=== PATIENT | female | born 2000 | race Two or more races ===

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

== ENCOUNTER 2019-10-13 12:41 | Inpatient (IN) | payer OTHER ==
[2019-10-13] MEDS ORDERED: SODIUM CHLORIDE 1,000 ML IV STA (13:44)
[2019-10-13] MEDS ORDERED: ONDANSETRON 4 MG/2 ML VIAL IVPUSH ONE (13:44)
[2019-10-13] MEDS ORDERED: ONDANSETRON 4 MG/2 ML VIAL ONE (13:46)
[2019-10-13 14:15] LABS: BASO % 0.2 % (0-2.0); EOS % 0.1 % (0-4.5); HEMATOCRIT 37.3 % (32.4-45.2); HEMOGLOBIN 12.6 GM/dL (10.7-15.3); LYMPH % 7.4 % (8-40); MCH 28.9 pg (25.7-33.7); MCHC 33.7 g/dl (32.0-36.0); MEAN CELL VOLUME 85.7 fl (80-96); MEAN PLT VOLUME 8.8 fl (7.5-11.1); MONO % 2.9 % (3.8-10.2); NEUT % 89.4 % (42.8-82.8); PLATELET COUNT 331 K/MM3 (134-434); RBC 4.36 M/mm3 (3.60-5.2); RDW 12.9 % (11.6-15.6); WHITE BLOOD COUNT 14.5 K/mm3 (4.0-10.0)
--- NOTE | 2019-10-13 14:24 | PDOC ---
History of Present Illness - General Chief Complaint: Nausea/Vomiting Stated Complaint: COLD SYMPSTOM Time Seen by Provider: 10/13/19 13:27 - History of Present Illness Initial Comments: Ms. Prakash is a 19 y/o female with PMH of marijuana use, presenting today with epigastric abdominal pain that started this morning. Reports associated nausea and vomiting x3 NBNB. No chest pain/shortness of breath. Reports associated diffuse abdominal pain. Reports mild frontal headache. Denies dysuria. Denies diarrhea. Reports having similar episodes of abdominal pain and nausea/vomiting before. No vaginal bleeding or discharge. LNMP 1 week ago. Past History - Past Medical History Allergies/Adverse Reactions: Allergies Allergy/AdvReac Type Severity Reaction Status Date / Time No Known Allergies Allergy Verified 12/09/16 19:48 Home Medications: Ambulatory Orders Amoxicillin/Potassium Clav [Augmentin 500-125 Tablet] 1 each PO BID #10 tablet 12/13/16 Clindamycin [Cleocin -] 300 mg PO TID #15 capsule 12/13/16 Anemia: No Asthma: No Cancer: No Cardiac Disorders: No CVA: No COPD: No CHF: No Dementia: No Diabetes: No GI Disorders: No Disorders: No HTN: No Hypercholesterolemia: No Liver Disease: No Seizures: No Thyroid Disease: No - Immunization History Immunization Up to Date: Yes - Psycho Social/Smoking Cessation Hx Smoking History: Unknown if ever smoked Have you smoked in the past 12 months: No Number of Cigarettes Smoked Daily: 0 Cigars Per Day: 0 Hx Alcohol Use: (pt refusing to unswer) Drug/Substance Use Hx: Yes (refusing to unswer) Substance Use Type: None Hx Substance Use Treatment: No Review of Systems - Review of Systems Comments:: GENERAL/CONSTITUTIONAL: No fever or chills. No weakness._ HEAD, EYES, EARS, NOSE AND THROAT: No change in vision. No change in hearing. No sore throat._ CARDIOVASCULAR: No chest pain or shortness of breath_ RESPIRATORY: Denies cough, hemoptysis_ GASTROINTESTINAL: Reports abdominal pain, nausea, vomiting. GENITOURINARY: No dysuria, frequency, or change in urination._ MUSCULOSKELETAL: No joint or muscle swelling or pain. No neck or back pain._ SKIN: No rash_ NEUROLOGIC: No headache, vertigo, loss of consciousness, or change in strength/ sensation._ ENDOCRINE: No increased thirst. No abnormal weight change_ HEMATOLOGIC/LYMPHATIC: No anemia, easy bleeding, or history of blood clots._ ALLERGIC/IMMUNOLOGIC: No hives or skin allergy._ *Physical Exam - Vital Signs Last Vital Signs Temp Pulse Resp BP Pulse Ox 98.4 F 74 20 111/75 100 10/13/19 12:55 10/13/19 13:35 10/13/19 13:35 10/13/19 13:35 10/13/19 13:35 - Physical Exam GENERAL: Awake, alert, and oriented to person/place/time, in no acute distress_ HEAD: No signs of trauma, normoc ephalic, atraumatic _ EYES: PERRLA, EOMI, sclera anicteric, conjunctiva clear_ ENT: Hearing grossly normal, nares patent, oropharynx clear without exudates. No uvular deviation. Moist mucosa_ NECK: Normal ROM, supple, no lymphadenopathy, JVD, or masses_ LUNGS: No distress, speaks in full sentences, clear to auscultation bilaterally _ HEART: Regular rate and rhythm, normal S1 and S2, no murmurs appreciated, peripheral pulses normal and equal bilaterally._ ABDOMEN: Soft, diffuse TTP worse in the epigastric area, normoactive bowel sounds. No guarding, no rebound. No masses_ EXTREMITIES: Normal inspection, Normal range of motion, no edema. No clubbing or cyanosis_ NEUROLOGICAL: Cranial nerves II through XII grossly intact. Normal speech, normal gait, no focal sensorimotor deficits _ SKIN: Warm, Dry, normal turgor, no rashes or lesions noted_ ED Treatment Course - LABORATORY CBC & Chemistry Diagram: 10/13/19 13:30 10/13/19 13:30 - Medications Given in the ED: ED Medications Discontinued Medications Generic Name Dose Route Start Last Admin Trade Name Freq PRN Reason Stop Dose Admin Ondansetron HCl 4 mg 10/13/19 13:44 10/13/19 13:50 Zofran Injection IVPUSH 10/13/19 13:45 4 mg ONCE ONE Administration Medical Decision Making - Medical Decision Making 10/13/19 14:41 19F presenting with epigastric abdominal pain, nausea, and vomiting x3. -cbc, cmp, lipase, coags -ekg, cxr -ua, ucx, upreg -US gallbladder 10/13/19 15:25 EKG shows NSR, 69 bpm, no ST elevation, QTc 465. 10/13/19 15:25 Labs reviewed. Laboratory Last Values WBC 14.5 K/mm3 (4.0-10.0) H 10/13/19 13:30 RBC 4.36 M/mm3 (3.60-5.2) 10/13/19 13:30 Hgb 12.6 GM/dL (10.7-15.3) 10/13/19 13:30 Hct 37.3 % (32.4-45.2) 10/13/19 13:30 MCV 85.7 fl (80-96) 10/13/19 13:30 MCH 28.9 pg (25.7-33.7) 10/13/19 13:30 MCHC 33.7 g/dl (32.0-36.0) 10/13/19 13:30 RDW 12.9 % (11.6-15.6) 10/13/19 13:30 Plt Count 331 K/MM3 (134-434) D 10/13/19 13:30 MPV 8.8 fl (7.5-11.1) 10/13/19 13:30 Absolute Neuts (auto) 13.0 K/mm3 (1.5-8.0) H 10/13/19 13:30 Neutrophils % 89.4 % (42.8-82.8) H D 10/13/19 13:30 Lymphocytes % 7.4 % (8-40) L D 10/13/19 13:30 Monocytes % 2.9 % (3.8-10.2) L 10/13/19 13:30 Eosinophils % 0.1 % (0-4.5) D 10/13/19 13:30 Basophils % 0.2 % (0-2.0) 10/13/19 13:30 Nucleated RBC % 0 % (0-0) 10/13/19 13:30 PT with INR 13.40 SEC (9.7-13.0) H 10/13/19 13:30 INR 1.13 (0.83-1.09) H 10/13/19 13:30 PTT (Actin FS) 24.5 SECONDS (25.2-36.5) L 10/13/19 13:30 Sodium 139 mmol/L (136-145) 10/13/19 13:30 Potassium 3.7 mmol/L (3.5-5.1) 10/13/19 13:30 Chloride 108 mmol/L (98-107) H 10/13/19 13:30 Carbon Dioxide 23 mmol/L (21-32) 10/13/19 13:30 Anion Gap 8 MMOL/L (8-16) 10/13/19 13:30 BUN 8.2 mg/dL (7-18) 10/13/19 13:30 Creatinine 0.8 mg/dL (0.55-1.3) 10/13/19 13:30 Est GFR (CKD-EPI)AfAm 122.14 10/13/19 13:30 Est GFR (CKD-EPI)NonAf 105.39 10/13/19 13:30 Random Glucose 139 mg/dL (74-106) H 10/13/19 13:30 Calcium 9.9 mg/dL (8.5-10.1) 10/13/19 13:30 Magnesium 2.0 mg/dL (1.8-2.4) 10/13/19 13:30 Total Bilirubin 0.6 mg/dL (0.2-1) 10/13/19 13:30 AST 18 U/L (15-37) 10/13/19 13:30 ALT 22 U/L (13-61) 10/13/19 13:30 Alkaline Phosphatase 72 U/L (45-117) 10/13/19 13:30 Total Protein 8.0 g/dl (6.4-8.2) 10/13/19 13:30 Albumin 4.1 g/dl (3.4-5.0) 10/13/19 13:30 Lipase 125 U/L (73-393) 10/13/19 13:30 Serum , Qual Negative 10/13/19 13:30 10/13/19 15:34 US shows no acute gallbladder pathology. 2mg haldol IV 10/13/19 16:33 Pt reassessed. Resting comfortably in bed and sleeping. Mother at bedside. Abdomen soft and non tender. 10/13/19 20:12 CT head shows no acute intra cranial pathology. CXR shows no acute intra thoracic pathology. CT abd pelv shows diffuse thickening of colon and signs of colitis. Will start cipro flagyl. UA reviewed. Urine Test Results Urine Color Yellow 10/13/19 17:00 Urine Appearance Clear 10/13/19 17:00 Urine pH >= 9.0 (5.0-8.0) H 10/13/19 17:00 Ur Specific [place] 1.022 (1.010-1.035) 10/13/19 17:00 Urine Protein Negative (NEGATIVE) 10/13/19 17:00 Urine Glucose (UA) Negative (NEGATIVE) 10/13/19 17:00 Urine Ketones 2+ (NEGATIVE) H 10/13/19 17:00 Urine Blood 2+ (NEGATIVE) H 10/13/19 17:00 Urine Nitrite Negative (NEGATIVE) 10/13/19 17:00 Urine Bilirubin Negative (NEGATIVE) 10/13/19 17:00 Ur Leukocyte Esterase Negative (NEGATIVE) 10/13/19 17:00 10/13/19 21:22 D/w Dr. Rodríguez who accepts the patient for admission. Discharge - Discharge Information Problems reviewed: Yes Clinical Impression/Diagnosis: Colitis, Intractable vomiting Condition: Stable - Admission Yes - Follow up/Referral - Patient Discharge Instructions - Post Discharge Activity
[2019-10-13 14:39] LABS: ALBUMIN 4.1 g/dl (3.4-5.0); BILIRUBIN,TOTAL 0.6 mg/dL (0.2-1); BLOOD UREA NITROGEN 8.2 mg/dL (7-18); CALCIUM 9.9 mg/dL (8.5-10.1); CREATININE 0.8 mg/dL (0.55-1.3); POTASSIUM 3.7 mmol/L (3.5-5.1)
[2019-10-13] MEDS ORDERED: ACETAMINOPHEN INJECTION 100 ML IVPB ONE ×2 (14:39→15:39)
[2019-10-13] MEDS: ACETAMINOPHEN 1000 MG/100 ML VIAL (NON FORMULARY) IVPB ONE (14:43)
[2019-10-13 15:18] LABS: INR 1.13 (0.83-1.09); PROTHROMBIN TIME (PATIENT) 13.4 SEC (9.7-13.0)
[2019-10-13 15:21] LABS: ACTIVATED PTT 24.5 SECONDS (25.2-36.5)
[2019-10-13] MEDS ORDERED: HALOPERIDOL DECANOATE 100 MG/ML IM ONE (15:35)
[2019-10-13] MEDS ORDERED: HALOPERIDOL LACTATE 5 MG/ML ONE (15:58)
[2019-10-13 17:35] LABS: EPI CELLS 5.5 /HPF (0-5/HPF); HYALINE CASTS 10 /lpf (0-8); PH,URINE >= 9.0 (5.0-8.0); URINE APPEARANCE CLEAR; URINE BACTERIA 11.2 /hpf (NEGATIVE); URINE BILIRUBIN NEGATIVE (NEGATIVE); URINE COLOR YELLOW; URINE GLUCOSE (UA) NEGATIVE (NEGATIVE); URINE KETONE 2+ (NEGATIVE); URINE LEUK ESTERASE NEGATIVE (NEGATIVE); URINE NITRITE NEGATIVE (NEGATIVE); URINE PROTEIN NEGATIVE (NEGATIVE); URINE RBC 16 /hpf (0-4); URINE UROBILINOGEN 0.2 mg/dL (0.2-1.0); URINE WBC 2 /hpf (0-5)
[2019-10-13] MEDS ORDERED: LORazepam 2 MG/ML SDV VIAL ONE (18:19)
[2019-10-13] MEDS: LACTATED RINGERS SOLUTION 1,000 ML/1,000 ML INFUS.BAG IV SCH ×2 (18:20→23:41)
--- NOTE | 2019-10-13 18:45 | PDOC ---
Documentation entered by Angel Umaña SCRIBE, acting as scribe for Melissa Taylor MD. Melissa Taylor MD: This documentation has been prepared by the Leeroy hoang Daniel, SCRIBE, under my direction and personally reviewed by me in its entirety. I confirm that the documentation accurately reflects all work, treatment, procedures, and medical decision making performed by me. Attending Attestation - Resident Resident Name: Gino Tan - ED Attending Attestation I have performed the following: I have examined & evaluated the patient, The case was reviewed & discussed with the resident, I agree w/resident's findings & plan, Exceptions are as noted - HPI HPI: 10/13/19 14:20 The patient is a 19 year old female with a past medical history of anxiety here today for evaluation of vomiting and abdominal pain. The patient reports that she has had diffuse abdominal pain that is most prominent in the epigastric and RUQ areas and NBNB vomiting since this morning. She states that she has had 3 episodes of vomiting. Pt is poorly cooperative with history due to nausea. Pt also reports gradual onset global headache since this morning as well. No treatments tried. Pt smokes marijuana multiple times per week, last 2 days ago, Patient denies dizziness, focal weakness/numbness. Denies fever, chills. Denies chest pain, shortness of breath. Denies diarrhea. Allergies: NKA - Physicial Exam PE: 10/13/19 14:20 GENERAL: Awake, alert, and fully oriented, in no acute distress but appears uncomfortable EYES: PERRLA, EOMI, sclera anicteric, conjunctiva clear ENT: Oropharynx clear without exudates. Moist mucosa NECK: Normal ROM, supple, no lymphadenopathy, JVD, or masses LUNGS: Breath sounds equal, clear to auscultation bilaterally. No wheezes, and no crackles HEART: Regular rate and rhythm, normal S1 and S2, no murmurs, rubs or gallops ABDOMEN: Soft, non distended, diffuse non focal ttp w/o guarding, no rebound. No masses EXTREMITIES: Normal range of motion, no edema. No cords, erythema, or tenderness NEUROLOGICAL: Normal speech, cranial nerves intact, equal strength and sensation b/l SKIN: Warm, Dry, normal turgor, no rashes or lesions noted. - Medical Decision Making 10/13/19 18:00 19yo F presents to the ED with diffuse abd pain, headache, N/V Vitals unremarkable (rpt BP 120/74) Exam with diffuse mild abd ttp, pt wretching DDx cannabinoid hypermesis vs cholecystitis vs pancreatitis vs gastritis vs gastroenteritis vs appendicitis Bedside US by Dr. Mccoy negative for GB pathology Labs with leukocytosis to 15, UA with ketones Poor response to zofran, thus obtained EKG for QTC and put pt on cardiac cath technician 2mg haldol IV given as well as 25mg benadryl with good response On rpt evaluation and PO challenge, however, pt vomiting water REmains diffusely tender, most focal in RUQ Plan for IV ativan for nausea Will also obtain CTH given headache and vomiting as well as CTAP to r/o acute intrabd pathology 10/13/19 19:00 Case signed out to night team for f/u on CTH/CTAP, reassessment, dispo Heart Score/ECG Review - ECG Intrepretation Comment:: 10/13/19 18:44 Twelve-lead EKG was performed and reviewed by me. Normal sinus rhythm, rate 69. Normal axis. No ST elevations, no prolonged QT
[2019-10-13] MEDS ORDERED: CIPROFLOXACIN 400 MG/D5W 400 MG/200 ML IVPB IVPB ONE (20:17)
[2019-10-13] MEDS ORDERED: ONDANSETRON 4 MG/2 ML VIAL IVPUSH PRN (22:19)
--- NOTE | 2019-10-13 22:47 | PN ---
Teaching Attending Note Name of Resident: Shad Rodríguez ATTENDING PHYSICIAN STATEMENT I saw and evaluated the patient. I reviewed the resident's note and discussed the case with the resident. I agree with the resident's findings and plan as documented. SUBJECTIVE: This is a 19 year old woman with a history of migraine headaches, Boerhaave syndrome, marijuana use, endometriosis who comes to the ED complaining of sudden onset of nausea, retching, vomiting and diarrhea while driving to school this morning. She has chronic intermittent epigastric pain for which she takes ibuprofen. She denies fevers but has had chills. She says she has been vomiting bilious fluid and diarrhea has been watery and non- bloody. She denies recent travel. She has not eaten anything or anyplace unusual except for some beef on 10/11 (she does not normally eat beef). OBJECTIVE: Vital Signs Period Temp Pulse Resp BP Sys/Nash Pulse Ox Last 24 Hr 98.2 F-98.4 F 62-88 20-20 82-125/60-112 98-100 HEART: S1S2, RRR LUNGS: Clear ABDOMEN: Soft, non-distended, (+) periumbilical tenderness, normal BS EXTREMITIES: No edema Laboratory Tests 10/13/19 10/13/19 10/13/19 13:30 13:30 13:30 WBC 14.5 H RBC 4.36 Hgb 12.6 Hct 37.3 MCV 85.7 MCH 28.9 MCHC 33.7 RDW 12.9 Plt Count 331 D MPV 8.8 Absolute Neuts (auto) 13.0 H Neutrophils % 89.4 H D Lymphocytes % 7.4 L D Monocytes % 2.9 L Eosinophils % 0.1 D Basophils % 0.2 Nucleated RBC % 0 PT with INR INR PTT (Actin FS) Sodium 139 Potassium 3.7 Chloride 108 H Carbon Dioxide 23 Anion Gap 8 BUN 8.2 Creatinine 0.8 Est GFR (CKD-EPI)AfAm 122.14 Est GFR (CKD-EPI)NonAf 105.39 Random Glucose 139 H Calcium 9.9 Magnesium 2.0 Total Bilirubin 0.6 AST 18 ALT 22 Alkaline Phosphatase 72 Total Protein 8.0 Albumin 4.1 Lipase 125 Serum , Qual Negative Urine Color Urine Appearance Urine pH Ur Specific [place] Urine Protein Urine Glucose (UA) Urine Ketones Urine Blood Urine Nitrite Urine Bilirubin Urine Urobilinogen Ur Leukocyte Esterase Urine WBC (Auto) Urine RBC (Auto) Urine Casts (Auto) U Epithel Cells (Auto) Urine Bacteria (Auto) Blood Type Antibody Screen 10/13/19 10/13/19 10/13/19 13:30 13:30 17:00 WBC RBC Hgb Hct MCV MCH MCHC RDW Plt Count MPV Absolute Neuts (auto) Neutrophils % Lymphocytes % Monocytes % Eosinophils % Basophils % Nucleated RBC % PT with INR 13.40 H INR 1.13 H PTT (Actin FS) 24.5 L Sodium Potassium Chloride Carbon Dioxide Anion Gap BUN Creatinine Est GFR (CKD-EPI)AfAm Est GFR (CKD-EPI)NonAf Random Glucose Calcium Magnesium Total Bilirubin AST ALT Alkaline Phosphatase Total Protein Albumin Lipase Serum , Qual Urine Color Yellow Urine Appearance Clear Urine pH >= 9.0 H Ur Specific [place] 1.022 Urine Protein Negative Urine Glucose (UA) Negative Urine Ketones 2+ H Urine Blood 2+ H Urine Nitrite Negative Urine Bilirubin Negative Urine Urobilinogen 0.2 Ur Leukocyte Esterase Negative Urine WBC (Auto) 2 Urine RBC (Auto) 16 Urine Casts (Auto) 10 U Epithel Cells (Auto) 5.5 Urine Bacteria (Auto) 11.2 Blood Type O POSITIVE Antibody Screen Negative Home Medications Medication Instructions Recorded Amoxicillin/Potassium Clav 1 each PO BID #10 tablet 12/13/16 [Augmentin 500-125 Tablet] Clindamycin [Cleocin -] 300 mg PO TID #15 capsule 12/13/16 ASSESSMENT AND PLAN: This is a 19 year old woman with a history of migraine headaches, Boerhaave syndrome, marijuana use, endometriosis who presented to the ED with nausea, vomiting and diarrhea. 1. Acute colitis with nausea, vomiting, diarrhea - Given Cipro, Flagyl in ED - Afebrile, leukocytosis may be reactive - Will hold antibiotics - Supportive care with IV fluid, pain control, antiemetics - Avoid marijuana - Check stool culture, WBC, O&P 2. Left ovarian cyst - Experienced Truck Driver follow-up as outpatient
[2019-10-13] MEDS: ACETAMINOPHEN 1000 MG/100 ML VIAL (NON FORMULARY) IVPB PRN (23:43)
[2019-10-14 00:12] VITALS: BMI 21.6
--- NOTE | 2019-10-14 01:01 | HP ---
CHIEF COMPLAINT: nausea, vomiting, epigastric pain PCP: none HISTORY OF PRESENT ILLNESS: Uziel Prakash is a 19 year old female with a past medical history of migraines , anxiety, pneumomediastinum from vomiting, and chronic marijuana use. She presents for a 1 day history of epigastric pain, 3-4 episodes of nausea and green vomiting. Denies blood in the vomit. Also notes that she had 1-2 episodes of diarrhea without blood. She endorses diffuse abdominal pain that is prominent in the epigastric region. She notes that she had beef yesterday that she normally does not eat. She denies other sick contacts, has a pet cat that is not sick and no other animal contacts, no recent travel. Endorses that she smokes marijuana regularly, every other day. Also endorsed a mild frontal headache. Stated that her last menstrual period was 1 week prior but feels that she had some bleeding today after she took some Motrin to assist with the abdominal pain. Otherwise denies acute complaints of cp, sob, dizziness, lightheadedness, difficulty swallowing, syncope, back pain, numbness, tingling, extremity pain, rashes, lesions on the skin. ER course was notable for: (1) WBC 14.5 with left shift, UA with pH>9.0, 2+ ketones, 2+ blood (2) bedside U/s with no acute pathology (3) CT/abd pelvis noting colitis with diffusely thickened colon, L ovarian cyst and free pelvic fluid (4) Head CT with no acute pathology Recent Travel: denies PAST MEDICAL HISTORY: as above PAST SURGICAL HISTORY: denies Social History: Smoking: denies Alcohol: denies Drugs: endorses regular every other day marijuana use Allergies No Known Allergies Allergy (Verified 12/09/16 19:48) HOME MEDICATIONS: Home Medications Medication Instructions Recorded Amoxicillin/Potassium Clav 1 each PO BID #10 tablet 12/13/16 [Augmentin 500-125 Tablet] Clindamycin [Cleocin -] 300 mg PO TID #15 capsule 12/13/16 REVIEW OF SYSTEMS CONSTITUTIONAL: generalized weakness, loss of appetite Absent: fever, chills, diaphoresis, malaise, weight change HEENT: Absent: rhinorrhea, nasal congestion, throat pain, throat swelling, difficulty swallowing, visual changes CARDIOVASCULAR: Absent: chest pain, syncope, palpitations, irregular heart rate, lightheadedness , peripheral edema RESPIRATORY: Absent: cough, shortness of breath, dyspnea with exertion, orthopnea, wheezing, GASTROINTESTINAL: nausea, vomiting, diarrhea Absent: abdominal pain, abdominal distension, constipation, melena, hematochezia GENITOURINARY: small amount of vaginal bleeding Absent: dysuria, frequency, urgency, hesitancy, hematuria, flank pain, genital pain MUSCULOSKELETAL: Absent: myalgia, arthralgia, joint swelling, back pain, neck pain SKIN: Absent: rash, itching, pallor HEMATOLOGIC/IMMUNOLOGIC: Absent: easy bleeding, easy bruising, lymphadenopathy, frequent infections ENDOCRINE: Absent: unexplained weight gain, unexplained weight loss, heat intolerance, cold intolerance NEUROLOGIC: Absent: headache, focal weakness or paresthesias, dizziness, unsteady gait, seizure, mental status changes, bladder or bowel incontinence PSYCHIATRIC: Absent: anxiety, depression, suicidal or homicidal ideation, hallucinations. PHYSICAL EXAMINATION Vital Signs - 24 hr 10/13/19 10/13/19 10/13/19 12:55 13:25 13:35 Temperature 98.4 F Pulse Rate 62 Pulse Rate [ 70 74 Left Radial] Respiratory 20 20 20 Rate Blood Pressure 125/112 H Blood Pressure 82/60 L 111/75 [Left Arm] O2 Sat by Pulse 99 100 100 Oximetry (%) 10/13/19 10/13/19 10/13/19 13:45 16:30 17:22 Temperature 98.2 F Pulse Rate 74 84 76 Pulse Rate [ 84 Left Radial] Respiratory 20 20 20 Rate Blood Pressure 111/75 110/70 121/82 Blood Pressure 110/70 [Left Arm] O2 Sat by Pulse 98 Oximetry (%) 10/13/19 10/13/19 10/13/19 18:30 23:00 23:48 Temperature 98.0 F Pulse Rate 88 91 H Pulse Rate [ 71 Left Radial] Respiratory 20 18 18 Rate Blood Pressure 116/80 104/50 L Blood Pressure 109/56 L [Left Arm] O2 Sat by Pulse 99 99 Oximetry (%) GENERAL: Awake, alert, and fully oriented, in moderate acute distress. HEAD: Normal with no signs of trauma. EYES: Pupils equal, round and reactive to light, extraocular movements intact, sclera anicteric, conjunctiva clear. EARS, NOSE, THROAT: Oropharynx clear without exudates. Dry mucous membranes. NECK: Normal range of motion, supple without lymphadenopathy, JVD. LUNGS: Breath sounds equal, clear to auscultation bilaterally. No wheezes, and no crackles. No accessory muscle use. HEART: Regular rate and rhythm, normal S1 and S2 without murmur, rub. ABDOMEN: Soft, tender to palpation throughout most prominently in the epigastric region, not distended, normoactive bowel sounds, no guarding, no rebound, no masses. No Lind's sign MUSCULOSKELETAL: Normal range of motion at all joints. No bony deformities or tenderness. Minor CVA tenderness bilaterally. UPPER EXTREMITIES: 2+ pulses, warm, well-perfused. No cyanosis. No clubbing. No peripheral edema. LOWER EXTREMITIES: 2+ pulses, warm, well-perfused. No calf tenderness. No peripheral edema. NEUROLOGICAL: Cranial nerves II-XII intact. 5/5 muscle strength upper and lower extremities bilaterally. PSYCHIATRIC: Cooperative. Good eye contact. Appropriate mood and affect. SKIN: Warm, dry, normal turgor, no rashes or lesions noted, normal capillary refill. Laboratory Results - last 24 hr 10/13/19 10/13/19 10/13/19 13:30 13:30 13:30 WBC 14.5 H RBC 4.36 Hgb 12.6 Hct 37.3 MCV 85.7 MCH 28.9 MCHC 33.7 RDW 12.9 Plt Count 331 D MPV 8.8 Absolute Neuts (auto) 13.0 H Neutrophils % 89.4 H D Lymphocytes % 7.4 L D Monocytes % 2.9 L Eosinophils % 0.1 D Basophils % 0.2 Nucleated RBC % 0 PT with INR INR PTT (Actin FS) Sodium 139 Potassium 3.7 Chloride 108 H Carbon Dioxide 23 Anion Gap 8 BUN 8.2 Creatinine 0.8 Est GFR (CKD-EPI)AfAm 122.14 Est GFR (CKD-EPI)NonAf 105.39 Random Glucose 139 H Calcium 9.9 Magnesium 2.0 Total Bilirubin 0.6 AST 18 ALT 22 Alkaline Phosphatase 72 Total Protein 8.0 Albumin 4.1 Lipase 125 Serum , Qual Negative Urine Color Urine Appearance Urine pH Ur Specific [place] Urine Protein Urine Glucose (UA) Urine Ketones Urine Blood Urine Nitrite Urine Bilirubin Urine Urobilinogen Ur Leukocyte Esterase Urine WBC (Auto) Urine RBC (Auto) Urine Casts (Auto) U Epithel Cells (Auto) Urine Bacteria (Auto) Blood Type Antibody Screen 02/12/2710/13/19 10/13/19 13:30 13:30 17:00 WBC RBC Hgb Hct MCV MCH MCHC RDW Plt Count MPV Absolute Neuts (auto) Neutrophils % Lymphocytes % Monocytes % Eosinophils % Basophils % Nucleated RBC % PT with INR 13.40 H INR 1.13 H PTT (Actin FS) 24.5 L Sodium Potassium Chloride Carbon Dioxide Anion Gap BUN Creatinine Est GFR (CKD-EPI)AfAm Est GFR (CKD-EPI)NonAf Random Glucose Calcium Magnesium Total Bilirubin AST ALT Alkaline Phosphatase Total Protein Albumin Lipase Serum , Qual Urine Color Yellow Urine Appearance Clear Urine pH >= 9.0 H Ur Specific [place] 1.022 Urine Protein Negative Urine Glucose (UA) Negative Urine Ketones 2+ H Urine Blood 2+ H Urine Nitrite Negative Urine Bilirubin Negative Urine Urobilinogen 0.2 Ur Leukocyte Esterase Negative Urine WBC (Auto) 2 Urine RBC (Auto) 16 Urine Casts (Auto) 10 U Epithel Cells (Auto) 5.5 Urine Bacteria (Auto) 11.2 Blood Type O POSITIVE Antibody Screen Negative ASSESSMENT/PLAN: Uziel Prakash is a 19 year old female with a past medical history of migraines , anxiety, pneumomediastinum from vomiting, and chronic marijuana use admitted for colitis and inability to tolerate PO intake. Colitis - CT scan as above - unclear reason for development of colitis, no family history of GI issues, has history of marijuana use, questionable cannabinoid hyperemesis syndrome - given Cipro/Flagyl in ED, no further antibiotics as patient without fevers - continue fluid hydration with LR - stool studies ordered - GI for possible colonoscopy, has been seen by Dr. 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 f/u Blood in UA - likely contaminant from vaginal bleeding DVT PPx - Lovenox 40mg subq daily FEN - LR at 100cc/hr - continue to monitor electrolytes and replete as necessary - NPO and advance diet as per GI Dispo - admit to Med-surg Family Medical History Family Hx Diabetes: Grandmother (maternal) Other Family History: denies family history of UC, Chrohns, other colon or GI pathology Visit type - Emergency Visit Emergency Visit: Yes ED Registration Date: 10/13/19 Care time: The patient presented to the Emergency Department on the above date and was hospitalized for further evaluation of their emergent condition. - New Patient This patient is new to me today: Yes Date on this admission: 10/14/19 - Critical Care Critical Care patient: No
[2019-10-14 07:57] LABS: BASO % 0.2 % (0-2.0); EOS % 0.3 % (0-4.5); HEMATOCRIT 31.5 % (32.4-45.2); HEMOGLOBIN 10.9 GM/dL (10.7-15.3); LYMPH % 23.5 % (8-40); MCH 29.6 pg (25.7-33.7); MCHC 34.6 g/dl (32.0-36.0); MEAN CELL VOLUME 85.6 fl (80-96); MEAN PLT VOLUME 8.6 fl (7.5-11.1); MONO % 6.3 % (3.8-10.2); NEUT % 69.7 % (42.8-82.8); PLATELET COUNT 238 K/MM3 (134-434); RBC 3.68 M/mm3 (3.60-5.2); RDW 12.7 % (11.6-15.6); WHITE BLOOD COUNT 8.9 K/mm3 (4.0-10.0)
[2019-10-14 08:03] LABS: BLOOD UREA NITROGEN 5.6 mg/dL (7-18); CALCIUM 8.6 mg/dL (8.5-10.1); CREATININE 0.6 mg/dL (0.55-1.3); MAGNESIUM 1.9 mg/dL (1.8-2.4); POTASSIUM 3.6 mmol/L (3.5-5.1)
--- NOTE | 2019-10-14 08:29 | CON.GI ---
Consult Consult Specialty:: GI Referred by:: Dr. Jose Rodríguez Reason for Consultation:: Colitis, Nausea/Vomiting - History of Present Illness History of Present Illness: Patient is a 19 y/o female with past medical history of Migraines, Anxiety, Pneumomediastinum from vomiting, and chronic marijuana use. She states that yesterday morning at 8am she developed sharp, non-radiating lower abdominal pain then began vomiting blood streaked contents and one episode of non-bloody diarrhea. She states that vomiting lasted throughout day, was green in color, and later developed epigastric pain. She denies further episodes of diarrhea and states lower abdominal pain is slightly improved. She states having dysphagia, poor appetite. Denies rectal bleeding or melena. CTAP shows diffusely thickened colon suspicious for colitis, left ovarian cyst. No fevers reported, initially at leukocytosis with WBC 14.5 but shows downtrend and currently 8.9. 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 ...LMP: 10/08/19 ...: No Psych: Yes: Anxiety - Alcohol/Substance Use Hx Alcohol Use: No - Smoking History Smoking history: Current every day smoker Have you smoked in the past 12 months: Yes Aproximately how many cigarettes per day: 0 - Social History ADL: Independent History of Recent Travel: No Home Medications - Allergies Allergies/Adverse Reactions: Allergies Allergy/AdvReac Type Severity Reaction Status Date / Time No Known Allergies Allergy Verified 12/09/16 19:48 - Home Medications Home Medications: Ambulatory Orders Amoxicillin/Potassium Clav [Augmentin 500-125 Tablet] 1 each PO BID #10 tablet 12/13/16 Clindamycin [Cleocin -] 300 mg PO TID #15 capsule 12/13/16 Review of Systems - Review of Systems Constitutional: reports: Loss of Appetite, Weakness Eyes: reports: No Symptoms HENT: reports: Difficult Swallowing Neck: reports: No Symptoms Cardiovascular: reports: No Symptoms Respiratory: reports: No Symptoms Gastrointestinal: reports: Abdominal Pain, Dysphagia, Nausea, Vomiting Genitourinary: reports: No Symptoms Breasts: reports: No Symptoms Reported Musculoskeletal: reports: No Symptoms Integumentary: reports: No Symptoms Neurological: reports: No Symptoms Endocrine: reports: No Symptoms Hematology/Lymphatic: reports: No Symptoms Psychiatric: reports: No Symptoms Physical Exam-GI Vital Signs: Vital Signs Temperature 98.5 F 10/14/19 06:00 Pulse Rate 75 10/14/19 06:00 Respiratory Rate 18 10/14/19 06:00 Blood Pressure 114/45 L 10/14/19 06:00 O2 Sat by Pulse Oximetry (%) 99 10/13/19 23:48 Constitutional: Yes: No Distress, Calm, Thin Eyes: Yes: Conjunctiva Clear HENT: Yes: Atraumatic Cardiovascular: Yes: Regular Rate and Rhythm Respiratory: Yes: Regular, CTA Bilaterally Gastrointestinal Inspection: Yes: WNL. No: Ascites, Distention, Hernia, Scars, Other ...Auscultate: Yes: Normoactive Bowel Sounds. No: Hyperactive Bowel Sounds, Hypoactive Bowel Sounds, No Bowel Sounds, Other ...Palpate: Yes: Soft, Tenderness (llq). No: Firm/Rigid, Guarding, Hepatomegaly , Mass, Pulsatile Mass, Splenomegaly, Tenderness, Epigastium, Tenderness, Rebound, Other ...Percussion: Yes: Tympanitic. No: Dullness, Fluid Wave, Other Labs: CBC, BMP 10/14/19 06:55 10/14/19 06:55 INR, PTT INR 1.13 (0.83-1.09) H 10/13/19 13:30 Imaging - Results Cat Scan: Report Reviewed Problem List - Problems (1) Colitis Assessment/Plan: >R/O infectious vs ischemic colitis Ceftriaxone and Flagyl Zofran for nausea/vomiting Stool Culture, Ova and Parastie clear liquid diet Code(s): K52.9 - NONINFECTIVE GASTROENTERITIS AND COLITIS, UNSPECIFIED (2) Intractable vomiting Assessment/Plan: r/o secodnary to PUD, gastritis R> IV Pantoprazole IV Reglan Code(s): R11.10 - VOMITING, UNSPECIFIED
[2019-10-14] MEDS ORDERED: ONDANSETRON 4 MG/2 ML VIAL IVPB STA (09:11)
[2019-10-14] MEDS: ACETAMINOPHEN 1000 MG/100 ML VIAL (NON FORMULARY) IVPB PRN ×2 (09:29→20:09)
[2019-10-14] MEDS ORDERED: DEXTROSE 5%-WATER - 50 ML IVPB ONE (09:46)
[2019-10-14] MEDS ORDERED: cefTRIAXone SODIUM 1 GM VIAL ONE (09:46)
[2019-10-14] MEDS ORDERED: FLU VACCINE QUAD 60 MCG/0.5 ML (MDV 19-20) IM ONE (10:00)
[2019-10-14] MEDS: CEFTRIAXONE 1 GM in DEXTROSE 5%-WATER - 50 ML IVPB SCH (10:29)
[2019-10-14] MEDS: ENOXAPARIN NA (PORCINE) 40 MG/0.4 ML DISP.SYRIN SQ SCH (10:29)
--- NOTE | 2019-10-14 11:33 | PN ---
Physical Exam: SUBJECTIVE: Patient seen and examined at the bedside. denies any nausea or vomiting. OBJECTIVE: Patient is a 19 year old female with a past medical history of migraines, anxiety, pneumomediastinum from vomiting, and chronic marijuana use. She presents for a 1 day history of epigastric pain, 3-4 episodes of nausea and green vomiting and 1-2 episodes of diarrhea without blood. An abdomen/pelvis CT shows diffusely thickened colon suspicious for colitis. A left ovarian cyst also noted. Vital Signs Period Temp Pulse Resp BP Sys/Nash Pulse Ox Last 24 Hr 98.0 F-98.9 F 62-91 17-20 82-125/45-112 98-100 GENERAL: The patient is awake, alert, and fully oriented, in no acute distress. HEAD: Normal with no signs of trauma. EYES: PERRL, extraocular movements intact, sclera anicteric, conjunctiva clear. No ptosis. ENT: Ears normal, nares patent NECK: Trachea midline, full range of motion, supple. LUNGS: Breath sounds equal, clear to auscultation bilaterally HEART: Regular rate and rhythm ABDOMEN: Soft, nontender, nondistended, normoactive bowel sounds EXTREMITIES: 2+ pulses, warm, well-perfused, no edema. NEUROLOGICAL: awake and alert PSYCH: Normal mood, normal affect. SKIN: Warm, dry, normal turgor, no rashes or lesions noted Laboratory Results - last 24 hr 10/13/19 10/13/19 10/13/19 13:30 13:30 13:30 WBC 14.5 H RBC 4.36 Hgb 12.6 Hct 37.3 MCV 85.7 MCH 28.9 MCHC 33.7 RDW 12.9 Plt Count 331 D MPV 8.8 Absolute Neuts (auto) 13.0 H Neutrophils % 89.4 H D Lymphocytes % 7.4 L D Monocytes % 2.9 L Eosinophils % 0.1 D Basophils % 0.2 Nucleated RBC % 0 PT with INR INR PTT (Actin FS) Sodium 139 Potassium 3.7 Chloride 108 H Carbon Dioxide 23 Anion Gap 8 BUN 8.2 Creatinine 0.8 Est GFR (CKD-EPI)AfAm 122.14 Est GFR (CKD-EPI)NonAf 105.39 Random Glucose 139 H Calcium 9.9 Magnesium 2.0 Total Bilirubin 0.6 AST 18 ALT 22 Alkaline Phosphatase 72 Total Protein 8.0 Albumin 4.1 Lipase 125 TSH Serum , Qual Negative Urine Color Urine Appearance Urine pH Ur Specific [place] Urine Protein Urine Glucose (UA) Urine Ketones Urine Blood Urine Nitrite Urine Bilirubin Urine Urobilinogen Ur Leukocyte Esterase Urine WBC (Auto) Urine RBC (Auto) Urine Casts (Auto) U Epithel Cells (Auto) Urine Bacteria (Auto) Blood Type Antibody Screen 10/13/19 10/13/19 10/13/19 13:30 13:30 17:00 WBC RBC Hgb Hct MCV MCH MCHC RDW Plt Count MPV Absolute Neuts (auto) Neutrophils % Lymphocytes % Monocytes % Eosinophils % Basophils % Nucleated RBC % PT with INR 13.40 H INR 1.13 H PTT (Actin FS) 24.5 L Sodium Potassium Chloride Carbon Dioxide Anion Gap BUN Creatinine Est GFR (CKD-EPI)AfAm Est GFR (CKD-EPI)NonAf Random Glucose Calcium Magnesium Total Bilirubin AST ALT Alkaline Phosphatase Total Protein Albumin Lipase TSH Serum , Qual Urine Color Yellow Urine Appearance Clear Urine pH >= 9.0 H Ur Specific [place] 1.022 Urine Protein Negative Urine Glucose (UA) Negative Urine Ketones 2+ H Urine Blood 2+ H Urine Nitrite Negative Urine Bilirubin Negative Urine Urobilinogen 0.2 Ur Leukocyte Esterase Negative Urine WBC (Auto) 2 Urine RBC (Auto) 16 Urine Casts (Auto) 10 U Epithel Cells (Auto) 5.5 Urine Bacteria (Auto) 11.2 Blood Type O POSITIVE Antibody Screen Negative 10/14/19 10/14/19 06:55 06:55 WBC 8.9 RBC 3.68 Hgb 10.9 Hct 31.5 L D MCV 85.6 MCH 29.6 MCHC 34.6 RDW 12.7 Plt Count 238 D MPV 8.6 Absolute Neuts (auto) 6.2 Neutrophils % 69.7 D Lymphocytes % 23.5 D Monocytes % 6.3 D Eosinophils % 0.3 D Basophils % 0.2 Nucleated RBC % 0 PT with INR INR PTT (Actin FS) Sodium 141 Potassium 3.6 Chloride 109 H Carbon Dioxide 25 Anion Gap 7 L BUN 5.6 L Creatinine 0.6 Est GFR (CKD-EPI)AfAm 151.01 Est GFR (CKD-EPI)NonAf 130.29 Random Glucose 86 Calcium 8.6 Magnesium 1.9 Total Bilirubin AST ALT Alkaline Phosphatase Total Protein Albumin Lipase TSH 0.34 L Serum , Qual Urine Color Urine Appearance Urine pH Ur Specific [place] Urine Protein Urine Glucose (UA) Urine Ketones Urine Blood Urine Nitrite Urine Bilirubin Urine Urobilinogen Ur Leukocyte Esterase Urine WBC (Auto) Urine RBC (Auto) Urine Casts (Auto) U Epithel Cells (Auto) Urine Bacteria (Auto) Blood Type Antibody Screen Active Medications Generic Name Dose Route Start Last Admin Trade Name Freq PRN Reason Stop Dose Admin Acetaminophen 1,000 mg 10/13/19 14:34 10/13/19 14:43 Ofirmev Injection - IVPB 1,000 mg ONCE ONE Administration Acetaminophen 1,000 mg 10/13/19 22:21 10/14/19 09:29 Ofirmev Injection - IVPB 10/14/19 22:21 1,000 mg Q6H PRN Administration PAIN LEVEL 6-10 Enoxaparin Sodium 40 mg 10/14/19 10:00 10/14/19 10:29 Lovenox - SQ Not Given DAILY GRABIEL Lactated Ringer's 1,000 ml in 1,000 mls @ 100 mls/hr 10/13/19 18:15 10/13/19 23:41 Lactated Ringers Solution IV 100 mls/hr ASDIR GRABIEL Administration Ceftriaxone Sodium 1 gm/ 50 mls @ 200 mls/hr 10/14/19 10:00 10/14/19 10:29 Dextrose IVPB 200 mls/hr DAILY GRABIEL Administration Protocol Metronidazole 250 mg in 50 mls @ 50 mls/hr 10/14/19 10:00 Flagyl 250mg Premixed Ivpb - IVPB Q8H-IV GRABIEL Ondansetron HCl 4 mg 10/13/19 22:19 Zofran Injection IVPUSH Q6H PRN NAUSEA ASSESSMENT/PLAN: Problem List - Problems (1) Colitis Assessment/Plan: ct scan as noted above. on flagyl and ceftriaxone per GI stool studies ordered/pending manage pain and nausea with tylenol/zofran, but currently asymptomatic Code(s): K52.9 - NONINFECTIVE GASTROENTERITIS AND COLITIS, UNSPECIFIED (2) Abdominal pain Assessment/Plan: now resolved and tolerating clears advance diet per GI Code(s): R10.9 - UNSPECIFIED ABDOMINAL PAIN (3) Prophylactic measure Assessment/Plan: fen lovenox continue ivf monitor electrolytes full code Code(s): Z29.9 - ENCOUNTER FOR PROPHYLACTIC MEASURES, UNSPECIFIED Visit type - Emergency Visit Emergency Visit: Yes ED Registration Date: 10/13/19 Care time: The patient presented to the Emergency Department on the above date and was hospitalized for further evaluation of their emergent condition. - New Patient This patient is new to me today: Yes Date on this admission: 10/14/19 - Critical Care Critical Care patient: No - Discharge Referral Referred to [facility] Med P.C.: No
--- NOTE | 2019-10-14 11:39 | EKG ---
Test Reason : Blood Pressure : / mmHG Vent. Rate : 069 BPM Atrial Rate : 069 BPM P-R Int : 156 ms QRS Dur : 082 ms QT Int : 434 ms P-R-T Axes : 059 085 060 degrees QTc Int : 465 ms NORMAL SINUS RHYTHM WITH SINUS ARRHYTHMIA NORMAL ECG WHEN COMPARED WITH ECG OF 11-DEC-2016 07:13, NO SIGNIFICANT CHANGE WAS FOUND Confirmed by Gino Morales MD ([id number]) on 10/14/2019 11:38:56 AM Referred By: Confirmed By:Gino Morales MD
[2019-10-14] MEDS: METOCLOPRAMIDE HCL INJECTION 10 MG/2 ML VIAL IVPB SCH (20:05)
[2019-10-14] MEDS: ONDANSETRON 4 MG/2 ML VIAL IVPB SCH ×2 (20:05→22:03)
[2019-10-14] MEDS ORDERED: PT OWN MED DRAWER 7, Y5N ONE (20:08)
[2019-10-14] MEDS: LACTATED RINGERS SOLUTION 1,000 ML/1,000 ML INFUS.BAG IV SCH (20:11)
[2019-10-14] MEDS ORDERED: PANTOPRAZOLE SODIUM 40 MG in SODIUM CHLORIDE 100 ML IVPB SCH (22:00)
[2019-10-14] MEDS: PANTOPRAZOLE SODIUM 40 MG VIAL IVPUSH SCH (22:03)
[2019-10-15] MEDS ORDERED: PT OWN MED DRAWER 7, Y5N ONE (01:35)
[2019-10-15] MEDS: METOCLOPRAMIDE HCL INJECTION 10 MG/2 ML VIAL IVPB SCH ×3 (01:53→17:01)
[2019-10-15] MEDS: ONDANSETRON 4 MG/2 ML VIAL IVPB SCH ×2 (01:53→06:15)
[2019-10-15] MEDS ORDERED: ONDANSETRON 4 MG/2 ML VIAL IVPB PRN (06:00)
[2019-10-15] MEDS: LACTATED RINGERS SOLUTION 1,000 ML/1,000 ML INFUS.BAG IV SCH (06:24)
[2019-10-15] MEDS: ACETAMINOPHEN 1000 MG/100 ML VIAL (NON FORMULARY) IVPB ONE (06:59)
[2019-10-15 07:31] LABS: BASO % 0.4 % (0-2.0); EOS % 0.7 % (0-4.5); HEMATOCRIT 34.7 % (32.4-45.2); HEMOGLOBIN 11.7 GM/dL (10.7-15.3); MCH 29.2 pg (25.7-33.7); MCHC 33.7 g/dl (32.0-36.0); MEAN CELL VOLUME 86.6 fl (80-96); MEAN PLT VOLUME 8.6 fl (7.5-11.1); MONO % 5.4 % (3.8-10.2); NEUT % 69.5 % (42.8-82.8); PLATELET COUNT 229 K/MM3 (134-434); RBC 4.01 M/mm3 (3.60-5.2); RDW 12.4 % (11.6-15.6); WHITE BLOOD COUNT 5.4 K/mm3 (4.0-10.0)
[2019-10-15 08:21] LABS: ALBUMIN 3.6 g/dl (3.4-5.0); BILIRUBIN,TOTAL 0.8 mg/dL (0.2-1); BLOOD UREA NITROGEN 6.2 mg/dL (7-18); CALCIUM 8.4 mg/dL (8.5-10.1); CREATININE 0.8 mg/dL (0.55-1.3); MAGNESIUM 1.9 mg/dL (1.8-2.4); POTASSIUM 3.1 mmol/L (3.5-5.1); TOT PROT 6.5 g/dl (6.4-8.2)
[2019-10-15] MEDS: KETOROLAC TROMETHAMINE 30 MG/1 ML VIAL IVPUSH PRN ×2 (08:24→13:28)
[2019-10-15] MEDS ORDERED: DEXTROSE 5%-WATER - 50 ML IVPB ONE (09:28)
[2019-10-15] MEDS ORDERED: cefTRIAXone SODIUM 1 GM VIAL ONE (09:28)
[2019-10-15] MEDS: PANTOPRAZOLE SODIUM 40 MG VIAL IVPUSH SCH (10:00)
[2019-10-15] MEDS: POTASSIUM CHLORIDE TABS 20 MEQ TABLET.ER (FP) PO ONE ×2 (10:00→10:16)
[2019-10-15] MEDS: ENOXAPARIN NA (PORCINE) 40 MG/0.4 ML DISP.SYRIN SQ SCH (10:00)
[2019-10-15] MEDS: CEFTRIAXONE 1 GM in DEXTROSE 5%-WATER - 50 ML IVPB SCH (10:00)
[2019-10-15] MEDS ORDERED: LORazepam 0.5 MG TABLET PO PRN (11:00)
--- NOTE | 2019-10-15 11:06 | PN ---
Physical Exam: SUBJECTIVE: Patient seen and examined at the bedside. she is having some abdominal pain this morning after clears. No nausea or vomiting. very anxious and asking to go home. She gave me permission to call her mother Frankie [phone] and update her on plan of care, status. OBJECTIVE: Patient is a 19 year old female with a past medical history of migraines, anxiety, pneumomediastinum from vomiting, and chronic marijuana use. She presents for a 1 day history of epigastric pain, 3-4 episodes of nausea and green vomiting and 1-2 episodes of diarrhea without blood. An abdomen/pelvis CT shows diffusely thickened colon suspicious for colitis. A left ovarian cyst also noted. Vital Signs Period Temp Pulse Resp BP Sys/Nash Pulse Ox Last 24 Hr 97.5 F-98.9 F 62-83 17-18 109-126/68-78 99 GENERAL: The patient is awake, alert, and fully oriented, in no acute distress. HEAD: Normal with no signs of trauma. EYES: PERRL, extraocular movements intact, sclera anicteric, conjunctiva clear. No ptosis. ENT: Ears normal, nares patent NECK: Trachea midline, full range of motion, supple. LUNGS: Breath sounds equal, clear to auscultation bilaterally HEART: Regular rate and rhythm ABDOMEN: Soft, nontender, nondistended, normoactive bowel sounds EXTREMITIES: 2+ pulses, warm, well-perfused, no edema. NEUROLOGICAL: awake and alert PSYCH: Normal mood, normal affect. SKIN: Warm, dry, normal turgor, no rashes or lesions noted Laboratory Results - last 24 hr 10/15/19 10/15/19 06:40 06:40 WBC 5.4 RBC 4.01 Hgb 11.7 Hct 34.7 MCV 86.6 MCH 29.2 MCHC 33.7 RDW 12.4 Plt Count 229 MPV 8.6 Absolute Neuts (auto) 3.8 Neutrophils % 69.5 Lymphocytes % 24.0 Monocytes % 5.4 Eosinophils % 0.7 D Basophils % 0.4 Nucleated RBC % 0 Sodium 139 Potassium 3.1 L Chloride 107 Carbon Dioxide 23 Anion Gap 10 BUN 6.2 L Creatinine 0.8 Est GFR (CKD-EPI)AfAm 122.14 Est GFR (CKD-EPI)NonAf 105.39 Random Glucose 80 Calcium 8.4 L Magnesium 1.9 Total Bilirubin 0.8 AST 13 L ALT 17 Alkaline Phosphatase 60 Total Protein 6.5 Albumin 3.6 Active Medications Generic Name Dose Route Start Last Admin Trade Name Suhail PRN Reason Stop Dose Admin Acetaminophen 1,000 mg 10/13/19 14:34 10/15/19 06:59 Ofirmev Injection - IVPB 1,000 mg ONCE ONE Administration Enoxaparin Sodium 40 mg 10/14/19 10:00 10/15/19 10:00 Lovenox - SQ Not Given DAILY GRABIEL Lactated Ringer's 1,000 ml in 1,000 mls @ 100 mls/hr 10/13/19 18:15 10/15/19 06:24 Lactated Ringers Solution IV 100 mls/hr ASDIR GRABIEL Administration Ceftriaxone Sodium 1 gm/ 50 mls @ 200 mls/hr 10/14/19 10:00 10/15/19 10:00 Dextrose IVPB 200 mls/hr DAILY GRABIEL Administration Protocol Metronidazole 250 mg in 50 mls @ 50 mls/hr 10/14/19 10:00 10/15/19 10:30 Flagyl 250mg Premixed Ivpb - IVPB 50 mls/hr Q8H-IV GRABIEL Administration Potassium Chloride 10 meq in 100 mls @ 100 mls/hr 10/15/19 10:45 Potassium Chloride 10 Meq Premix Ivpb - IVPB 10/15/19 12:44 Q60M GRABIEL Ketorolac Tromethamine 30 mg 10/15/19 07:55 10/15/19 08:24 Toradol Injection - IVPUSH 10/20/19 07:54 30 mg Q6H PRN Administration PAIN LEVEL 7 - 10 Lorazepam 0.5 mg 10/15/19 11:00 Ativan - PO BID PRN ANXIETY Metoclopramide HCl 5 mg 10/14/19 18:45 10/15/19 01:53 Reglan Injection - IVPB 5 mg Q8H-IV GRABIEL Administration Ondansetron HCl 4 mg 10/15/19 06:00 Zofran Injection IVPB Q4H PRN NAUSEA AND/OR VOMITING Pantoprazole Sodium 40 mg 10/14/19 22:00 10/15/19 10:00 Protonix Iv IVPUSH 40 mg BID GRABIEL Administration ASSESSMENT/PLAN: Problem List - Problems (1) Colitis Assessment/Plan: ct scan as noted above. on flagyl and ceftriaxone per GI stool studies ordered/pending Code(s): K52.9 - NONINFECTIVE GASTROENTERITIS AND COLITIS, UNSPECIFIED (2) Abdominal pain Assessment/Plan: mild pain this a.m. without nausea or vomiting. advance diet per GI Code(s): R10.9 - UNSPECIFIED ABDOMINAL PAIN (3) Anxiety Assessment/Plan: trial of ativan 0.5mg PO BID Code(s): F41.9 - ANXIETY DISORDER, UNSPECIFIED (4) Prophylactic measure Assessment/Plan: fen lovenox continue ivf monitor electrolytes full code Code(s): Z29.9 - ENCOUNTER FOR PROPHYLACTIC MEASURES, UNSPECIFIED (5) DVT prophylaxis Assessment/Plan: lovenox 40/ambulation Code(s): Z29.9 - ENCOUNTER FOR PROPHYLACTIC MEASURES, UNSPECIFIED Visit type - Emergency Visit Emergency Visit: Yes ED Registration Date: 10/13/19 Care time: The patient presented to the Emergency Department on the above date and was hospitalized for further evaluation of their emergent condition. - New Patient This patient is new to me today: No - Critical Care Critical Care patient: No - Discharge Referral Referred to [facility] Med P.C.: No
[2019-10-15] MEDS: KCL 10 MEQ IVPB 10 MEQ/100 ML INFUS.BAG IVPB SCH ×2 (11:39→13:25)
[2019-10-15] MEDS ORDERED: POTASSIUM CHLORIDE ORAL LIQUID 20 MEQ/15 ML PO ONE (13:00)
[2019-10-15 15:09] VITALS: BP 121/73; PULSE 66; TEMP 98.8
[2019-10-15] MEDS ORDERED: METOCLOPRAMIDE HCL 10 MG TABLET (FP) PO SCH (16:30)
--- NOTE | 2019-10-15 18:13 | DS ---
Physical Exam: SUBJECTIVE: Patient seen and examined Patient seen and examined at the bedside. she is having some abdominal pain this morning after clears. No nausea or vomiting. very anxious and asking to go home. She gave me permission to call her mother Frankie [phone] and update her on plan of care, status. OBJECTIVE: Patient is a 19 year old female with a past medical history of migraines, anxiety, pneumomediastinum from vomiting, and chronic marijuana use. She presents for a 1 day history of epigastric pain, 3-4 episodes of nausea and green vomiting and 1-2 episodes of diarrhea without blood. An abdomen/pelvis CT shows diffusely thickened colon suspicious for colitis. A left ovarian cyst also noted. per GI, advance diet and if patient tolerates diet, can discharge home later today. Vital Signs Period Temp Pulse Resp BP Sys/Nash Pulse Ox Last 24 Hr 97.5 F-98.9 F 62-76 17-18 115-126/73-78 99 PHYSICAL EXAM GENERAL: The patient is awake, alert, and fully oriented, in no acute distress. HEAD: Normal with no signs of trauma. EYES: PERRL, extraocular movements intact, sclera anicteric, conjunctiva clear. No ptosis. ENT: Ears normal, nares patent NECK: Trachea midline, full range of motion, supple. LUNGS: Breath sounds equal, clear to auscultation bilaterally HEART: Regular rate and rhythm ABDOMEN: Soft, nontender, nondistended, normoactive bowel sounds EXTREMITIES: 2+ pulses, warm, well-perfused, no edema. NEUROLOGICAL: awake and alert PSYCH: Normal mood, normal affect. SKIN: Warm, dry, normal turgor, no rashes or lesions noted LABS Laboratory Results - last 24 hr 10/15/19 10/15/19 06:40 06:40 WBC 5.4 RBC 4.01 Hgb 11.7 Hct 34.7 MCV 86.6 MCH 29.2 MCHC 33.7 RDW 12.4 Plt Count 229 MPV 8.6 Absolute Neuts (auto) 3.8 Neutrophils % 69.5 Lymphocytes % 24.0 Monocytes % 5.4 Eosinophils % 0.7 D Basophils % 0.4 Nucleated RBC % 0 Sodium 139 Potassium 3.1 L Chloride 107 Carbon Dioxide 23 Anion Gap 10 BUN 6.2 L Creatinine 0.8 Est GFR (CKD-EPI)AfAm 122.14 Est GFR (CKD-EPI)NonAf 105.39 Random Glucose 80 Calcium 8.4 L Magnesium 1.9 Total Bilirubin 0.8 AST 13 L ALT 17 Alkaline Phosphatase 60 Total Protein 6.5 Albumin 3.6 HOSPITAL COURSE: Date of Admission:10/13/19 Date of Discharge: 10/15/19 Minutes to complete discharge: 45 Discharge Summary Problems reviewed: Yes Reason For Visit: COLITIS INTRACTABLE VOMITING Current Active Problems Anxiety (Acute) Colitis (Acute) DVT (deep venous thrombosis) (Acute) DVT prophylaxis (Acute) Hyperemesis (Acute) Intractable vomiting (Acute) Prophylactic measure (Acute) Condition: Improved - Instructions Diet, Activity, Other Instructions: Ms Prakash: You were admitted to [facility] for colitis. What is colitis? Colitis is an inflammation of our colon that can occur spontaneously. The treatment is bowel rest and antibiotics. Here are our discharge recommendations: Continue these medication for treatment of colitis as follows: Ceftin 500mg TWICE per day at 8am and 8pm for 7 more days (10/16/2019 - 10/22/2019 ) - antibiotic for colitis Flagyl 250mg THREE times per day at 8am, 2pm and 8pm for 7 more days -(10/16/2019 - 10/22/2019) - antibiotic for colitis Reglan 5mg three times per day BEFORE meals - anti nause medication before meals. Protonix 40mg DAILY one hour before breakfast - will help maintain your stomach davon Toradol 10mg NEEDED every 6 hours for abdominal pain -as needed for pain Diet: Continue a low fiber/low residue diet without any lactose. Please note that it is important that you follow up with Dr. Schmid by calling his office for an appointment.. Thank you for allowing us to care for you. Referrals: Ajit Schmid MD [Staff Physician] - Disposition: HOME - Home Medications Comprehensive Discharge Medication List: Ambulatory Orders Cefuroxime Axetil [Ceftin -] 500 mg PO Q12H #14 tablet 10/15/19 Ketorolac Tromethamine [Toradol] 10 mg PO TID #10 tablet 10/15/19 Metoclopramide HCl [Reglan -] 5 mg PO TIDAC #21 tablet 10/15/19 Pantoprazole Sodium [Protonix -] 40 mg PO DAILY #30 tablet.ec 10/15/19 metroNIDAZOLE [Flagyl -] 250 mg PO TID #21 tablet 10/15/19 Problem List - Problems (1) Colitis Assessment/Plan: ct scan as noted above. on flagyl and ceftriaxone per GI, can discharge home per GI recommendations as patient has tolerated two regular diet without any vomiting or nausea. She agrees to follow up with GI as an outpatient. She agrees to continue the antibiotics. Code(s): K52.9 - NONINFECTIVE GASTROENTERITIS AND COLITIS, UNSPECIFIED (2) Abdominal pain Assessment/Plan: mild pain this a.m. without nausea or vomiting which improved in the afternoon. Code(s): R10.9 - UNSPECIFIED ABDOMINAL PAIN (3) Anxiety Assessment/Plan: trial of ativan 0.5mg PO BID Code(s): F41.9 - ANXIETY DISORDER, UNSPECIFIED (4) Prophylactic measure Assessment/Plan: d/c home Code(s): Z29.9 - ENCOUNTER FOR PROPHYLACTIC MEASURES, UNSPECIFIED (5) DVT prophylaxis Assessment/Plan: lovenox 40/ambulation Code(s): Z29.9 - ENCOUNTER FOR PROPHYLACTIC MEASURES, UNSPECIFIED This patient is new to me today: No Emergency Visit: Yes ED Registration Date: 10/13/19 Care time: The patient presented to the Emergency Department on the above date and was hospitalized for further evaluation of their emergent condition. Critical Care patient: No - Discharge Referral Referred to [facility] Med P.C.: No
[2019-10-16] MEDS ORDERED: PANTOPRAZOLE 40 MG TABLET PO SCH (10:00)
== END 2019-10-15 18:42 | disposition home or self-care (01) | DRG 249 ==
LOC: JER 12:41 → JERBED 21:22 → J7W 23:13
PROVIDERS: ADMIT Internal Medicine; ATTEND Nurse Practitioner Family
DX: K52.9 Noninfective gastroenteritis and colitis, unspecified (principal); G43.909 Migraine, unspecified, not intractable, without status migrainosus; R10.9 Unspecified abdominal pain; R11.10 Vomiting, unspecified; N80.9 Endometriosis, unspecified; F12.90 Cannabis use, unspecified, uncomplicated; N83.202 Unspecified ovarian cyst, left side; Z29.9 Encounter for prophylactic measures, unspecified
CPT/HCPCS: 36415; 70450-TC; 71045-TC-FY; 74177-TC; 76705-TC; 80048; 80053; 81003; 83690; 83735; 84132; 84443; 84703; 85025; 85610; 85730; 86850; 86900; 86901; 87077; 87086; 87329; 93005; 93010; 99285-25; G0008; J0131; J7030; Q2036; Q9967